=== PATIENT | female | born 1955 | race Caucasian/White ===

== ENCOUNTER 2016-07-22 14:51 | Emergency (ER) | payer OTHER, MEDICARE ==
[~2016-07-22 14:51] MED LIST: ASAB PO; ATV1 PO; AZASITE OPH; DUONEB INH; LEXAPRO20 PO; PRINZIDE1 TAB PO; VIB50 PO
== END 2016-07-22 16:40 | disposition home or self-care (01) ==
LOC: ER 14:51
DX: H57.8 Other specified disorders of eye and adnexa (principal); Z77.098 Contact with and (suspected) exposure to other hazardous, chiefly nonmedicinal, chemicals; I10 Essential (primary) hypertension; K21.9 Gastro-esophageal reflux disease without esophagitis; F32.9 Major depressive disorder, single episode, unspecified; Z90.710 Acquired absence of both cervix and uterus; Z88.5 Allergy status to narcotic agent; Z91.040 Latex allergy status; Z79.82 Long term (current) use of aspirin; Z79.899 Other long term (current) drug therapy
CPT/HCPCS: 99284; A9270-GY